=== PATIENT | female | born 1995 | race Caucasian/White ===

== ENCOUNTER 2017-01-24 21:15 | Inpatient (IN) | payer MEDICAID ==
[2017-01-24] MEDS ORDERED: LIDOCAINE HCL 50 ML VIAL PERI PRN (22:44)
[2017-01-24] MEDS ORDERED: OXYTOCIN/DEXTROSE 5%-WATER 30 UNITS/500 ML BAG IV ONE (22:44)
[2017-01-24] MEDS ORDERED: RINGER'S SOLUTION,LACTATED 1,000 ML IV ONE (22:44)
[2017-01-24 22:59] LABS: Mean Cell Volume 80.5 fl (78-100); Mean Corpuscular Hgb Conc 32.3 g/dl (32-36); Mean Platelet Volume 10.7 fl (6.0-9.5); Neutrophil # 8.2 K/mm3 (1.3-6.0); Neutrophil % 75.6 % (42-75.0); Platelet Count 256 K/mm3 (150-450); Red Blood Count 3.85 M/mm3 (4.2-5.4); Red Cell Distribution Width 14.1 % (11.5-14.0); White Blood Count 10.8 K/mm3 (4.0-10.5)
[2017-01-24] MEDS ORDERED: BUPIVACAINE HCL/0.9 % NACL/PF 250 ML EP PRN (23:08)
[2017-01-24] MEDS ORDERED: NALOXONE HCL 1 MG/1 ML SYRG IV PRN (23:08)
[2017-01-24] MEDS ORDERED: ONDANSETRON HCL/PF 2 MG/ML VIAL IV PRN (23:08)
[2017-01-24 23:14] LABS: Random Urine Total Protein 14.7 mg/dL (0-12)
[2017-01-24] MEDS ORDERED: fentaNYL CITRATE/PF 50 MCG/ML AMPUL IT SCH (23:15)
[2017-01-24 23:18] LABS: Albumin * 2.3 gm/dl (3.4-5.0); Anion Gap 15.2 mmol/L (6.8-13.8); BUN/Creatinine Ratio 13.1 (9.0-21.6); Bilirubin, Total 0.2 mg/dL (0.0-1.1); Ca. Corrected For Albumin 10.5 mg/dL (8.4-10.2); Calcium * 9.5 mg/dL (7.9-10.9); Carbon Dioxide 21.6 mmol/L (24-32.6); Potassium 3.8 mmol/L (3.4-4.6); Total Protein 6.2 gm/dL (6.2-8.2)
[2017-01-25] MEDS: DEXTROSE 5%-LACTATED RINGERS 1,000 ML IV PRN ×2 (00:06→00:55)
--- NOTE | 2017-01-25 00:42 | OR ---
Anesthesia Procedure Note - Anesthesia Procedure Note Narrative: Vital Signs - Last Taken Temp 37 C 01/24/17 23:58 Pulse 98 01/24/17 23:58 Resp 16 01/24/17 23:58 BP 145/69 01/24/17 23:58 Pulse Ox 100 01/24/17 23:58 01/25/17 00:41 ANESTHESIA PROCEDURE NOTE Date of Procedure: 01/25/2017 Time of procedure: 0030. Performed by: Jovan Bernard CRNA [employer] Applications Developer: None. Preprocedure diagnosis: Active labor. Post procedure diagnosis: Same. Procedure: Insertion of labor epidural. Indications: The patient is a 21 -year-old multigravida female in active labor requesting labor epidural for pain management. Findings: See below. Details of the procedure: The patient was placed in a sitting position. Back was prepped with DuraPrep. Patient was then draped in a sterile fashion. Lidocaine 1% was infiltrated to the skin and subcutaneous tissues at the level of the L3 4 interspace. The epidural space was identified using a 18-gauge Tuohy needle with [id number] technique. 20 mcg fentanyl was given intrathecally using a 27 ga. spinal needle. Epidural catheter was inserted without difficulty. Negative test dose was elicited using 5 mL of 1.5% preservative-free lidocaine plus epinephrine 1 200,000. The epidural catheter was then taped and secured in place. EBL: Minimal. Fluids: N/A. Specimen: N/A. Post procedure condition: The patient tolerated the procedure well. No complications were noted. Thank you for this consultation. Oliveira CRNA
[2017-01-25] MEDS ORDERED: fentaNYL CITRATE/PF 50 MCG/ML AMPUL ONE (04:38)
--- NOTE | 2017-01-25 05:29 | OR ---
Operative Report - Dictated Report Narrative: Spontaneous vaginal delivery of viable female at 0501 on 01/25/2017 with Apgars 9 and 9, weighing 3572 g in OP presentation Cord clamping delayed approximately 1 minute Placenta delivered complete, intact, with three vessel cord Estimated blood loss: 150 mL Lacerations: None History for MU Definition: * The number of deliveries resulting in a live the patient experienced prior to current hospitalization * The previous delivery of live twins or any live multiple gestation is considered one live event. *If primagravida or nulliparous is documented select zero for the number of previous live births. Live Events: 1
[2017-01-25] MEDS ORDERED: HYDROCORTISONE 30 APPL TUBE TP PRN (05:31)
[2017-01-25] MEDS ORDERED: BISACODYL 10 MG SUPP.RECT RC PRN (05:31)
[2017-01-25] MEDS ORDERED: SENNOSIDES 8.6 MG TABLET PO PRN (05:31)
[2017-01-25] MEDS ORDERED: GLYCERIN/WITCH HAZEL LEAF 40 APPL BOX TP PRN (05:31)
[2017-01-25] MEDS ORDERED: OXYTOCIN/DEXTROSE 5%-WATER 30 UNITS/500 ML BAG IV ONE (05:31)
[2017-01-25] MEDS ORDERED: oxyCODONE HCL/ACETAMINOPHEN 1 TAB TABLET PO PRN (05:31)
[2017-01-25] MEDS ORDERED: BENZOCAINE/MENTHOL 81 SPRAY CAN TP PRN (05:31)
[2017-01-25] MEDS ORDERED: LIDOCAINE HCL 50 ML VIAL IJ ONE (05:38)
[2017-01-25] MEDS: oxyCODONE HCL/ACETAMINOPHEN 1 TAB TABLET PO PRN ×4 (07:07→20:41)
[2017-01-25] MEDS: IBUPROFEN 800 MG TABLET PO PRN ×3 (07:07→20:41)
[2017-01-25] MEDS: DOCUSATE SODIUM 100 MG CAPSULE PO SCH ×2 (09:46→20:41)
[2017-01-25] MEDS ORDERED: RHO(D) IMMUNE GLOBULIN 300 MCG DISP.SYRIN IM ONE (11:00)
[2017-01-26] MEDS: oxyCODONE HCL/ACETAMINOPHEN 1 TAB TABLET PO PRN ×3 (00:25→08:38)
[2017-01-26] MEDS: IBUPROFEN 800 MG TABLET PO PRN ×3 (04:39→23:46)
[2017-01-26] MEDS: DOCUSATE SODIUM 100 MG CAPSULE PO SCH ×2 (08:39→20:19)
--- NOTE | 2017-01-26 14:03 | PN ---
Subjective - Date and Time Seen Date: 01/26/17 Time: 14:02 Objective - Vitals Vitals: Last Vital Signs Temp 36.7 C 01/26/17 12:59 Pulse 85 01/26/17 12:59 Resp 16 01/26/17 12:59 BP 132/75 01/26/17 12:59 Pulse Ox 99 01/26/17 12:59 Patient denies complaints. Lochia wnl Abdomen - soft, nontender Uterus - firm, at umbilicus - 1 No calf tenderness Impression: day #1 - s/p spontaneous vaginal delivery. Gestational hypertension-resolved. Plan: Continue routine care. Routine discharge home instructions. Cauti Physician Documentation - Urinary Catheter Management Urethral (Chaney) Date of Insertion: 01/25/17 Time of Insertion: 01:30
[2017-01-27 08:45] VITALS: BP 145/81
[2017-01-27] MEDS: oxyCODONE HCL/ACETAMINOPHEN 1 TAB TABLET PO PRN (09:12)
[2017-01-27] MEDS: IBUPROFEN 800 MG TABLET PO PRN (09:12)
[2017-01-27] MEDS: DOCUSATE SODIUM 100 MG CAPSULE PO SCH (09:12)
--- NOTE | 2017-01-27 12:26 | PN ---
Subjective - Date and Time Seen Date: 01/27/17 Time: 12:24 Objective - Vitals Vitals: Last Vital Signs Temp 36.8 C 01/27/17 08:42 Pulse 80 01/27/17 08:42 Resp 18 01/27/17 08:42 BP 145/81 01/27/17 08:42 Pulse Ox 98 01/27/17 08:42 Patient originally wanted to be discharged yesterday but was kept overnight since her baby had to stay until she urinated. Patient has been having emotional instability over the past 2 nights but denies any thoughts of hurting herself or others. Lochia wnl Abdomen - soft, nontender Uterus - firm, at umbilicus - 2 No calf tenderness Impression: day #2 - s/p spontaneous vaginal delivery. blues. Plan: Routine discharge instructions. Discussed with patient blues versus depression and instructed her to call if she has any thoughts of hurting herself or others or if her "blues" last longer than 1 week. Cauti Physician Documentation - Urinary Catheter Management Urethral (Chaney) Date of Insertion: 01/25/17 Time of Insertion: 01:30
== END 2017-01-27 14:30 | disposition home or self-care (01) | DRG 775 ==
LOC: OBCLINIC 21:15 → OB 22:37 → MS 01-25 16:18
PROVIDERS: ADMIT Obstetrics & Gynecology; ATTEND Obstetrics & Gynecology
PROC: 10E0XZZ Delivery of Products of Conception, External Approach (ICD-10-PCS; principal; 2017-01-25)
PROC: 4A1HXCZ Monitoring of Products of Conception, Cardiac Rate, External Approach (ICD-10-PCS; 2017-01-25)
PROC: 00HU33Z Insertion of Infusion Device into Spinal Canal, Percutaneous Approach (ICD-10-PCS; 2017-01-25)
DX: O13.4 Gestational [pregnancy-induced] hypertension without significant proteinuria, complicating childbirth (principal); Z68.42 Body mass index [BMI] 45.0-49.9, adult; O99.02 Anemia complicating childbirth; D50.9 Iron deficiency anemia, unspecified; O99.214 Obesity complicating childbirth; E66.01 Morbid (severe) obesity due to excess calories; Z3A.39 39 weeks gestation of pregnancy; Z37.0 Single live birth
CPT/HCPCS: 36415; 59025; 80053; 82570; 84156; 85025; 85460; J2405; J2790